=== PATIENT | female | born 1985 | race American Indian/Alaskan Native ===

== ENCOUNTER 2017-08-16 13:23 | Outpatient (CLI) | payer MEDICAID ==
--- NOTE | 2017-08-16 15:02 | Ultrasound Report ---
ULTRASOUND OB LESS THAN 14 WEEKS - TRANSABDOMINAL AND TRANSVAGINAL INDICATION: Left-sided pain. Amenorrhea. Positive test per doctor's office. COMPARISON: None similar at this institution. FINDINGS: Transabdominal and transvaginal pelvic sonography performed in this patient with LMP of 07/06/2017 and estimated menstrual age of 5 weeks and 6 days. It demonstrates an anteverted, uterus estimated at 11.9 x 4.4 x 5.5 cm with at least 2 indeterminate slightly complex hypoechoic foci noted along the endometrium, one 0.8 x 0.4 cm towards the fundus, endovaginal image 29 while the other slightly more inferiorly measuring 0.46 cm on image 26, latter not entirely excluded for gestational sac, which if the case, may correspond to 5 weeks and 2 days. Minimal pelvic free fluid. Right ovary is 4 x 1.9 x 2.4 cm. Left ovary only visualized transabdominally and estimated at 2.6 x 2.5 x 2.2 cm with a 1.6 cm complex intrinsic focus with diffuse low level echoes, images 18 and 19, possibly a hemorrhagic cyst or ruptured follicle, amongst others. CONCLUSION: 1. Nonspecific sonographic findings at this time with 2 small, subcentimeter, indeterminate complex hypoechoic foci noted along the endometrium, as described above. An early gestation however not excluded at this time in light of provided history, though may be also correlated clinically with serial serum beta-hCG values. 2. Other findings, as above. Thank you for the opportunity to participate in this patient's care.
== END 2017-08-16 13:24 | disposition home or self-care (01) ==
LOC: US 13:23
PROVIDERS: ATTEND Obstetrics & Gynecology
DX: Z32.01 Encounter for pregnancy test, result positive (principal); R10.9 Unspecified abdominal pain; Z3A.01 Less than 8 weeks gestation of pregnancy
CPT/HCPCS: 76801; 76817